=== PATIENT | male | born 1990 | race Two or more races ===

== ENCOUNTER → 2022-06-12 | Emergency (ER) | payer OTHER ==
[~2022-06-12] VITALS: Ht 175.3 cm; Wt 113.9 kg
[~2022-06-12] MED LIST: BACI3.5O23 TOP; LIDOCAINE 1%-EPI 1:100,000 20 ML VIAL ONE
[2022-06-12 14:27] VITALS: BP 137/76
--- NOTE | 2022-06-12 14:30 | NUR ---
BIB [facility] -KO -SB -AB. HEAD LAC. DENIES NECK/BACK PAIN AMB ON SEEN PER PT. AMBULATORY, PLACED ON BED, AAOX4, BREATHING EVEN AND UNLABORED.
== END | disposition home or self-care (01) ==
LOC: ER 14:06
DX: S01.01XA Laceration without foreign body of scalp, initial encounter (principal); Z79.899 Other long term (current) drug therapy; V89.2XXA Person injured in unspecified motor-vehicle accident, traffic, initial encounter; Y93.89 Activity, other specified; Y92.89 Other specified places as the place of occurrence of the external cause; Y99.8 Other external cause status
CPT/HCPCS: 99282; 12002; A6403; J3490

== ENCOUNTER 2022-06-21 13:50 | Emergency (ER) | payer OTHER ==
[~2022-06-21] VITALS: Ht 167.6 cm; Wt 97.5 kg
[~2022-06-21 13:50] MED LIST changes: -LIDOCAINE 1%-EPI 1:100,000 20 ML VIAL ONE
[2022-06-21 14:22] VITALS: BP 134/84
--- NOTE | 2022-06-21 15:21 | NUR ---
Pt No longer in the unit- Checked immediate are. Pt not found- ELOPED
== END 2022-06-21 15:23 | disposition home or self-care (01) ==
LOC: ER 13:50
DX: Z53.21 Procedure and treatment not carried out due to patient leaving prior to being seen by health care provider (principal)

== ENCOUNTER 2022-06-21 22:01 | Emergency (ER) | payer OTHER ==
[~2022-06-21] VITALS: Ht 175.3 cm; Wt 113.4 kg
[2022-06-21 22:19] VITALS: BP 135/70
--- NOTE | 2022-06-21 22:20 | NUR ---
Patient discharged to home in stable condition. Written and verbal after care instructions given. Patient verbalizes understanding of instruction.
== END 2022-06-21 22:20 | disposition home or self-care (01) ==
LOC: ER 22:04
DX: Z48.02 Encounter for removal of sutures (principal); S01.01XD Laceration without foreign body of scalp, subsequent encounter; V89.2XXD Person injured in unspecified motor-vehicle accident, traffic, subsequent encounter

== ENCOUNTER 2022-10-04 06:50 | Emergency (ER) | payer OTHER ==
[~2022-10-04] VITALS: Ht 175.3 cm; Wt 122.5 kg
--- NOTE | 2022-10-04 07:32 | NUR ---
to ER 10, c/o low back pain and flank pain.
--- NOTE | 2022-10-04 07:43 | NUR ---
DR. SHAILESH BEAN AT PT'S BEDSIDE FOR EVAL
--- NOTE | 2022-10-04 07:48 | NUR ---
GAVE PT URINE CUP; AWAITING URINE SAMPLE.
[2022-10-04] MEDS ORDERED: KETOROLAC TROMETHAMINE INJ 60 MG/2 ML VIAL IM ONE (08:00)
[2022-10-04] MEDS ORDERED: METHOCARBAMOL (750MG) 750 MG TABLET PO ONE (08:00)
[2022-10-04] MEDS ORDERED: KETOROLAC TROMETHAMINE INJ 30 MG/ML VIAL ONE (08:04)
[2022-10-04 08:31] LABS: BASOPHILS % (AUTO) 0.4 % (0.0-2.0); EOSINOPHILS % (AUTO) 3.4 % (0.0-6.0); HEMATOCRIT 43 % (39-51); LYMPHOCYTES # (AUTO) 1.1 K/uL (0.8-4.8); LYMPHOCYTES % (AUTO) 10.5 % (20.0-44.0); MEAN CORPUSCULAR HGB CONC 33 g/dl (31.0-36.0); MEAN CORPUSCULAR VOLUME 84 fL (80-96); MONOCYTES # (AUTO) 1.4 K/uL (0.1-1.30); MONOCYTES % (AUTO) 13.5 % (2.0-12.0); NEUTROPHILS # (AUTO) 7.6 K/uL (1.8-8.9); NEUTROPHILS % (AUTO) 72.2 % (43.0-81.0); PLATELET COUNT (AUTO) 188 K/uL (150-450); RED BLOOD CELL COUNT(AUTO) 5.11 MIL/uL (4.5-6.0); WHITE BLOOD COUNT (AUTO) 10.5 K/uL (4.3-11.0)
[2022-10-04 08:41] LABS: CALCIUM, SERUM 8.7 mg/dL (8.5-10.1); CARBON DIOXIDE 29 mmol/L (21-32); CHLORIDE 100 mmol/L (98-107); CREATININE 1.2 mg/dL (0.6-1.3); GLUCOSE 111 mg/dL (74-106); POTASSIUM 3.7 mmol/L (3.5-5.1); SODIUM SERUM 134 mmol/L (136-145); UREA NITROGEN, BLOOD 12 mg/dL (7-18)
[2022-10-04] MEDS ORDERED: IOHEXOL-350 100 ML VIAL IV ONE (09:22)
[2022-10-04] MEDS ORDERED: CT SWABBABLE VALVE TRANS SET 1 EA INFUS.SET MC ONE (09:22)
[2022-10-04] MEDS ORDERED: IV NS 0.9% 250 ML IV ONE (09:22)
--- NOTE | 2022-10-04 09:24 | NUR ---
RAC 18G STARTED W/ SALINE LOCK
--- NOTE | 2022-10-04 09:35 | NUR ---
PT RETURNED FROM CT
[2022-10-04] MEDS ORDERED: IBUP-1955 PO (11:04)
[2022-10-04] MEDS ORDERED: LIDO30AD10 TP (11:05)
[2022-10-04 11:28] VITALS: BP 126/86
== END 2022-10-04 11:29 | disposition home or self-care (01) ==
LOC: ER 06:50
DX: S39.012A Strain of muscle, fascia and tendon of lower back, initial encounter (principal); R07.9 Chest pain, unspecified; J90 Pleural effusion, not elsewhere classified; F17.200 Nicotine dependence, unspecified, uncomplicated; Z79.899 Other long term (current) drug therapy; X58.XXXA Exposure to other specified factors, initial encounter; Y93.89 Activity, other specified; Y92.89 Other specified places as the place of occurrence of the external cause; Y99.8 Other external cause status
CPT/HCPCS: 99285; 71275; 71045; 93005; 85025; 80048; 85378; 36415; 84484; 96372; J1885; J7050; Q9967

== ENCOUNTER 2024-07-20 03:17 | Emergency (ER) | payer OTHER ==
[~2024-07-20] VITALS: Ht 175.3 cm; Wt 99.8 kg
[~2024-07-20 03:17] MED LIST changes: +IBUP-1955 PO; +LIDO30AD10 TP
[2024-07-20 03:33] VITALS: TEMP 98.2
[2024-07-20] MEDS ORDERED: SODI88SP18 BNOSTRILS (03:45)
[2024-07-20] MEDS ORDERED: OXYMETAZOLINE HCL NASAL SPRAY 30 ML BOTTLE NS ONE (03:47)
[2024-07-20 03:51] VITALS: BP 143/78; O2SAT 98
[2024-07-20] MEDS: OXYMETAZOLINE HCL NASAL SPRAY 30 ML BOTTLE NS ONE (03:52)
== END 2024-07-20 04:17 | disposition home or self-care (01) ==
LOC: ER 03:22
DX: R04.0 Epistaxis (principal)